=== PATIENT | male | born 1995 | race Hispanic/Latino ===

== ENCOUNTER 2020-02-28 22:46 | Emergency (ER) | payer BC, SELFPAY ==
--- OUTSIDE RECORDS SUMMARY | 2020-02-28 22:47 | XMS REPORT ---
:1995 Author Organization [facility] t Address [address] [place] [address] [place] [id number] Care Team Providers Name Role Phone Unavailable Unavailable Unavailable Problems This patient has no known problems. Allergies, Adverse Reactions, Alerts This patient has no known allergies or adverse reactions. Medications This patient has no known medications. Procedures This patient has no known procedures. Results This patient has no known results.
[2020-02-28 23:31] VITALS: BP 123/78; TEMP 98.8; O2SAT 100
--- NOTE | 2020-03-06 12:44 | EDPHYS ---
Physician Documentation [facility] Name: Israel Wolf III Age: 24 yrs Sex: Male : 1995 Arrival Date: 02/28/2020 Time: 22:47 Bed 18 Private MD: ED Physician Chiki Turpin HPI: 02/27 22:54 This 24 yrs old Male presents to ER via Unassigned with complaints of Back kb Pain, Leg Pain. 22:54 The patient presents with pain that is acute, with no known mechanism of injury. The kb symptoms are located in the low back. Onset: The symptoms/episode began/occurred 4 day(s) ago. The pain radiates to the right leg and left leg. Associated signs and symptoms: Pertinent positives: none Pertinent negatives: incontinence, numbness, tingling, urinary retention. The problem was sustained when lifting. Modifying factors: The patient symptoms are alleviated by OTC meds, NSAID, the patient symptoms are aggravated by any movement. Severity of symptoms: At their worst the symptoms were moderate, in the emergency department the symptoms have improved. The patient has not experienced similar symptoms in the past. The patient has not recently seen a physician. Pt reports low back pain that started after work Friday and has gotten worse. Reports he was lifting a lot at work. 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 Historical: - Allergies: 22:59 No Known Allergies; wh - Home Meds: 22:59 None [Active]; wh - PMHx: 22:59 None; wh - PSHx: 22:59 None; wh - Immunization history:: Adult Immunizations up to date. - Social history:: Smoking status: Patient reports the use of cigarette tobacco products, denies chronic smoking, but will smoke occasionally, Patient uses alcohol, occasionally. ROS: 22:53 Constitutional: Negative for fever, chills, and weight loss, Cardiovascular: Negative kb for chest pain, palpitations, and edema, Respiratory: Negative for shortness of breath, cough, wheezing, and pleuritic chest pain, Abdomen/GI: Negative for abdominal pain, nausea, vomiting, diarrhea, and constipation, : Negative for injury, bleeding, discharge, and swelling, MS/Extremity: Negative for injury and deformity, Skin: Negative for injury, rash, and discoloration, Neuro: Negative for headache, weakness, numbness, tingling, and seizure. 22:53 Back: Positive for pain at rest, pain with movement, radiated pain, of the low back area. Exam: 22:53 Constitutional: This is a well developed, well nourished patient who is awake, alert, kb and in no acute distress. Head/Face: Normocephalic, atraumatic. Chest/axilla: Normal chest wall appearance and motion. Nontender with no deformity. No lesions are appreciated. Cardiovascular: Regular rate and rhythm with a normal S1 and S2. No gallops, murmurs, or rubs. Normal PMI, no JVD. No pulse deficits. Respiratory: Lungs have equal breath sounds bilaterally, clear to auscultation and percussion. No rales, rhonchi or wheezes noted. No increased work of breathing, no retractions or nasal flaring. Abdomen/GI: Soft, non-tender, with normal bowel sounds. No distension or tympany. No guarding or rebound. No evidence of tenderness throughout. Back: No spinal tenderness. No costovertebral tenderness. Full range of motion. Skin: Warm, dry with normal turgor. Normal color with no rashes, no lesions, and no evidence of cellulitis. MS/ Extremity: Pulses equal, no cyanosis. Neurovascular intact. Full, normal range of motion. Neuro: Awake and alert, GCS 15, oriented to person, place, time, and situation. Cranial nerves II-XII grossly intact. Motor strength 5/5 in all extremities. Sensory grossly intact. Cerebellar exam normal. Normal gait. Vital Signs: 22:57 BP 127 / 63; Pulse 64; Resp 18; Temp 98.8; Pulse Ox 97% ; Weight 113.4 kg; Height 6 ft. wh 1 in. (185.42 cm); Pain 5/10; 23:17 BP 123 / 78; Pulse 59; Resp 18; Pulse Ox 100% on R/A; mg2 22:57 Body Mass Index 32.98 (113.40 kg, 185.42 cm) wh MDM: 22:48 Patient medically screened. kb 22:53 Data reviewed: vital signs, nurses notes. Data interpreted: Pulse oximetry: on room air kb is 100 %. Interpretation: normal. Counseling: I had a detailed discussion with the patient and/or guardian regarding: the historical points, exam findings, and any diagnostic results supporting the discharge/admit diagnosis, the need for outpatient follow up, a family practitioner, to return to the emergency department if symptoms worsen or persist or if there are any questions or concerns that arise at home. Administered Medications: No medications were administered Disposition: 02/28 02:44 Co-signature as Attending Physician, Chiki Turpin MD. ma2 Disposition: 02/28/20 22:55 Discharged to Home. Impression: Low back pain. - Condition is Stable. - Discharge Instructions: Back Injury Prevention, [id number], Back Pain, Adult, [id number], Back Exercises, [id number]. - Prescriptions for Cyclobenzaprine 10 mg Oral Tablet - take 1 tablet by ORAL route every 8 hours As needed; 21 tablet. - Medication Reconciliation Form, Thank You Letter, Antibiotic Education, Prescription Opioid Use form. - Follow up: Emergency Department; When: As needed; Reason: Worsening of condition. Follow up: Private Physician; When: 2 - 3 days; Reason: Recheck today's complaints, Continuance of care, Re-evaluation by your physician. Signatures: Korina Anthony, MILKING MACHINE MECHANIC-C MILKING MACHINE MECHANIC-Mechelle Yuan Mohammad, MD MD ma2 Deep Haley RN RN mg2 Corrections: (The following items were deleted from the chart) 02/27 23:19 22:55 02/28/2020 22:55 Discharged to Home. Impression: Low back pain. Condition is mg2 Stable. Forms are Medication Reconciliation Form, Thank You Letter, Antibiotic Education, Prescription Opioid Use. Follow up: Emergency Department; When: As needed; Reason: Worsening of condition. Follow up: Private Physician; When: 2 - 3 days; Reason: Recheck today's complaints, Continuance of care, Re-evaluation by your physician. kb
--- NOTE | 2020-03-06 12:45 | ER ---
Nurse's Notes [facility] Name: Israel Wolf III Age: 24 yrs Sex: Male : 1995 Arrival Date: 02/28/2020 Time: 22:47 Bed 18 Private MD: Diagnosis: Low back pain Presentation: 02/27 22:57 Chief complaint: Patient states: C/O lower back pain and leg pain that started Friday wh after lifting. Pt denies any associated symptoms. Coronavirus screen: Proceed with normal triage. Patient denies a cough. Patient denies shortness of breath or difficulty breathing. Patient denies measured and/or subjective temperature greater than 100.4F prior to today's visit. Patient denies travel on a cruise ship or to a country the [facility] currently lists as an affected area. Patient denies contact with known and/or suspected case of COVID-19. Ebola Screen: Patient negative for fever greater than or equal to 101.5 degrees Fahrenheit, and additional compatible Ebola Virus Disease symptoms Patient denies exposure to infectious person. Initial Sepsis Screen: Does the patient meet any 2 criteria? No. Patient's initial sepsis screen is negative. Does the patient have a suspected source of infection? No. Patient's initial sepsis screen is negative. Risk Assessment: Do you want to hurt yourself or someone else? Patient reports no desire to harm self or others. Onset of symptoms is unknown. 22:57 Method Of Arrival: Ambulatory 22:57 Acuity: JEFFREY 5 Historical: - Allergies: 22:59 No Known Allergies; - Home Meds: 22:59 None [Active]; - PMHx: 22:59 None; - PSHx: 22:59 None; - Immunization history:: Adult Immunizations up to date. - Social history:: Smoking status: Patient reports the use of cigarette tobacco products, denies chronic smoking, but will smoke occasionally, Patient uses alcohol, occasionally. Screenin:00 Abuse screen: Denies threats or abuse. Denies injuries from another. Nutritional screening: No deficits noted. Tuberculosis screening: No symptoms or risk factors identified. Fall Risk None identified. Assessment: 22:59 General: Appears in no apparent distress. Behavior is calm, cooperative, appropriate for age. Pain: Complains of pain in low back area Pain radiates to right leg and left leg Pain currently is 5 out of 10 on a pain scale. Quality of pain is described as shooting, Pain began 2-3 days ago. Neuro: Level of Consciousness is awake, alert, obeys commands, Oriented to person, place, time, situation, Appropriate for age. Cardiovascular: Capillary refill < 3 seconds. Respiratory: Airway is patent Respiratory effort is even, unlabored, Respiratory pattern is regular, symmetrical. GI: Abdomen is flat, non-distended. : No signs and/or symptoms were reported regarding the genitourinary system. EENT: No signs and/or symptoms were reported regarding the EENT system. Derm: Skin is intact, is healthy with good turgor, Skin is pink, warm \T\ dry. normal. Musculoskeletal: Circulation, motion, and sensation intact. Vital Signs: 22:57 BP 127 / 63; Pulse 64; Resp 18; Temp 98.8; Pulse Ox 97% ; Weight 113.4 kg; Height 6 ft. wh 1 in. (185.42 cm); Pain 5/10; 23:17 BP 123 / 78; Pulse 59; Resp 18; Pulse Ox 100% on R/A; mg2 22:57 Body Mass Index 32.98 (113.40 kg, 185.42 cm) ED Course: 22:47 Patient arrived in ED. ds1 22:48 [facility]-C [facility] kb 22:48 Chiki Turpin MD is Attending Physician. kb 22:57 Mechelle Calixto is Primary Nurse. 22:59 Triage completed. 23:04 Arm band placed on right wrist. 23:04 Patient has correct armband on for positive identification. Bed in low position. Call light in reach. Side rails up X 1. Pulse ox on. NIBP on. 23:04 No provider procedures requiring assistance completed. Patient did not have IV access during this emergency room visit. Administered Medications: No medications were administered Outcome: 22:55 Discharge ordered by . kb 23:17 Discharged to home ambulatory. mg2 23:17 Condition: good 23:17 Discharge instructions given to patient, Instructed on discharge instructions, follow up and referral plans. medication usage, Demonstrated understanding of instructions, follow-up care, medications, Prescriptions given X 1. 23:19 Patient left the ED. mg2 Signatures: Korina Anthony, MANAGER CLINICAL PHARMACY-C MANAGER CLINICAL PHARMACY-Ckb Stella Palacio ds1 Mechelle Calixto Michele, RN RN mg2
== END 2020-02-28 23:19 | disposition home or self-care (01) ==
LOC: ER 22:46
DX: M54.5 Low back pain (principal); Z72.0 Tobacco use
CPT/HCPCS: 99283